=== PATIENT | male | born 1990 | race Caucasian/White ===

== ENCOUNTER 2023-10-03 19:24 | Inpatient (IN) ==
[2023-10-03] MEDS ORDERED: Lactated Ringers SEPSIS* BAG 2,180 ML IV ONE (20:03)
[2023-10-03 20:42] LABS: Activated Partial Thrombo Time 28.2 seconds (26.0-38.0); INR 1.32 (0.83-1.13)
[2023-10-03 20:53] LABS: Albumin 2.7 g/dL (3.2-5.2); Albumin/Globulin Ratio 0.8 (1-3); C Reactive Protein 164.33 mg/L (<8.01); Calcium 7.7 mg/dL (8.6-10.3); Creatinine, Serum 0.78 mg/dL (0.67-1.17); Globulin 3.5 g/dL (2-4); Potassium 3.6 mmol/L (3.5-5.0); Total Bilirubin 1.3 mg/dL (0.2-1.0); Total Protein 6.2 g/dL (6.4-8.9)
[2023-10-03 20:58] LABS: ABS Eosinophils 0.3 10^3/uL (0.0-0.5); ABS Lymphocytes 1.1 10^3/uL (1.0-4.8); ABS Neutrophils 19.1 10^3/uL (1.5-7.6); ABS Nucleated RBC 0.01 10^3/ul; Acanthocytes 1+; Eosinophil % 1.3 %; Hematocrit 30.5 % (38-53); Hemoglobin 10.2 g/dL (13.2-16.3); Lymphocyte % 5.1 %; Mean Corpuscular Hemoglobin 28.7 pg (27-33); Mean Corpuscular Hgb Conc 33.4 g/dL (31-36); Mean Corpuscular Volume 85.9 fL (80-97); Mean Platelet Volume 7.7 fL (7.5-11.2); Platelet Count 128 10^3/uL (150-450); Red Blood Count 3.55 10^6/uL (4.06-5.63); Red Cell Distribution Width 14.4 % (12-17); Toxic Granulation 1+; White Blood Count 21.5 10^3/uL (3.6-10.2)
[2023-10-03] MEDS ORDERED: Vancomycin 1,000 MG in NS 0.9% 250 ml 250 ML IVPB ONE (22:40)
[2023-10-03] MEDS ORDERED: Vancomycin 1,500 MG in NS 0.9% 250 ml 250 ML IVPB ONE (23:00)
[2023-10-03] MEDS ORDERED: Vancomycin per Pharmacy 1 EA NOTE FOLLOW UP SCH (23:00)
[2023-10-03] MEDS ORDERED: Vancomycin 1,250 MG in NS 0.9% 250 ml 250 ML IVPB ONE (23:00)
[2023-10-03] MEDS ORDERED: Ondansetron ODT 4 mg TAB 4 MG TAB PO PRN (23:55)
[2023-10-03] MEDS ORDERED: Buprenorp/Nalox 8-2 MG FILM SL PRN ×2 (23:55→23:58)
[2023-10-04 00:15] LABS: Rapid Strep Molecular Negative (Negative)
[2023-10-04 00:26] LABS: Calcium 7.7 mg/dL (8.6-10.3); Creatinine, Serum 0.82 mg/dL (0.67-1.17); Potassium 3.6 mmol/L (3.5-5.0); eGFR CKD-EPI 118.2 (>60)
[2023-10-04] MEDS ORDERED: cefTRIAXone 1 gm/50 mL D5W 1 GM/50 ML BAG IV SCH (00:30)
[2023-10-04] MEDS ORDERED: NS 0.9% 1000 ml BAG 1,000 ML IV SCH (03:15)
[2023-10-04 03:30] LABS: Urine Appearance Clear; Urine Bilirubin Negative (Negative); Urine Blood 1+ (Negative); Urine Color Yellow; Urine Glucose Negative (Negative); Urine Ketones Negative (Negative); Urine Nitrite Negative (Negative); Urine Protein Negative (Negative); Urine Specific Gravity 1.014 (1.002-1.030); Urine Urobilinogen Negative (Negative)
[2023-10-04 03:33] LABS: Urine Bacteria Absent (Absent); Urine Red Blood Cell Trace(0-2/hpf) (Absent); Urine White Blood Cell Trace(0-5/hpf) (Absent)
[2023-10-04 03:46] LABS: Urine Benzodiazepine Screen None Detected (None Detect); Urine Cannabinoids Screen Presumptive Positive (None Detect); Urine Opiates Screen None Detected (None Detect)
[2023-10-04] MEDS ORDERED: Vancomycin 1,250 MG in NS 0.9% 250 ml 250 ML IVPB SCH (06:00)
[2023-10-04] MEDS ORDERED: ceFAZolin 2 GM in NS PREMIX 2 GM/100 ML BAG IVPB SCH (10:00)
[2023-10-04] MEDS: ceFAZolin 2 GM PREMIX 2 GM/50 ML BAG IV SCH ×3 (11:21→19:24)
[2023-10-04 11:49] LABS: Hematocrit 31.3 % (38-53); Hemoglobin 10.5 g/dL (13.2-16.3); Mean Corpuscular Hemoglobin 28.8 pg (27-33); Mean Corpuscular Hgb Conc 33.5 g/dL (31-36); Mean Corpuscular Volume 86.1 fL (80-97); Mean Platelet Volume 7.9 fL (7.5-11.2); Platelet Count 102 10^3/uL (150-450); Red Blood Count 3.64 10^6/uL (4.06-5.63); Red Cell Distribution Width 14.5 % (12-17); White Blood Count 20.7 10^3/uL (3.6-10.2)
[2023-10-04 12:39] LABS: Calcium 7.6 mg/dL (8.6-10.3); Creatinine, Serum 0.75 mg/dL (0.67-1.17); Magnesium 2.1 mg/dL (1.9-2.7); Potassium 3.6 mmol/L (3.5-5.0); eGFR CKD-EPI 121.4 (>60)
[2023-10-04 12:56] LABS: HIV 4th Generation Nonreactive (Nonreactive)
[2023-10-04 13:00] LABS: ABS Eosinophils 0.1 10^3/uL (0.0-0.5); ABS Lymphocytes 1.3 10^3/uL (1.0-4.8); ABS Monocytes 1.5 10^3/uL (0.0-1.1); ABS Neutrophils 17.7 10^3/uL (1.5-7.6); Eosinophil % 0.4 %; Lymphocyte % 6.5 %
[2023-10-04 14:11] LABS: Hepatitis C Antibody Reactive (Negative)
[2023-10-04 18:30] LABS: Body Fluid Appearance Bloody; Body Fluid Color Red; Body Fluid Source Pleural Fluid
[2023-10-04 19:32] LABS: Body Fluid Total Nucleated 3346 /mcL
[2023-10-04] MEDS ORDERED: Enoxaparin 40 MG/0.4 ML SYR SUBCUT SCH (20:00)
[2023-10-04] MEDS: Buprenorp/Nalox 8-2 MG FILM SL SCH (20:04)
[2023-10-04 20:18] LABS: Body Fluid Mono 1 %; Body Fluid Other Cells 16; Body Fluid Total Cells Counted 200
[2023-10-05] MEDS: ceFAZolin 2 GM PREMIX 2 GM/50 ML BAG IV SCH ×2 (02:40→13:51)
[2023-10-05] MEDS ORDERED: Vancomycin Trough Check NOTE FOLLOW UP ONE (05:30)
[2023-10-05] MEDS ORDERED: DALBAVANCIN HCL (NF) 500 MG/25 ML VIAL IVPB ONE (08:39)
[2023-10-05] MEDS ORDERED: Oritavancin 400 mg/40 mL Vial 1,200 MG in D5W 1000 ML BAG 880 ML IV ONE (10:00)
[2023-10-05] MEDS ORDERED: DALBAVANCIN HCL (NF) 1,000 MG in D5W 250 ml BAG 250 ML IVPB ONE (10:00)
[2023-10-05] MEDS: Buprenorp/Nalox 8-2 MG FILM SL SCH ×2 (11:00→13:44)
[2023-10-05 18:11] VITALS: BP 100/54
[2023-10-07 09:12] LABS: Fluid Type, Protein, Total PLEURAL; Glucose, BF 120 mg/dL; Total Protein, BF 3.9 g/dL
[2023-10-07 10:12] LABS: Lactate Dehydrogenase, BF 893 U/L
== END 2023-10-05 18:45 | disposition left against medical advice (07) | DRG 871 ==
LOC: ED 19:24 → EDHOLD 22:35 → SUATTDRO 22:35 → MED 10-04 17:23
PROVIDERS: ADMIT Internal Medicine; ATTEND Internal Medicine